=== PATIENT | female | born 1985 | race Caucasian/White ===

== ENCOUNTER → 2018-04-11 | Outpatient (CLI) | payer OTHER ==
[~2018-04-11] MED LIST: ESCI20TA PO
[2018-04-11 11:45] LABS: BASOPHILS % (AUTO) 0.4 % (0-1); EOSINOPHILS # (AUTO) 0.1 X10'3 (0-0.9); EOSINOPHILS % (AUTO) 1.5 % (0-6); HEMATOCRIT 42.1 % (35.0-45.0); HEMOGLOBIN 14.5 g/dl (12.0-16.0); LYMPHOCYTES # (AUTO) 1.6 X10'3 (1.1-4.8); LYMPHOCYTES % (AUTO) 22.6 % (21-51); MEAN CORPUSCULAR HEMOGLOBIN 29.3 PG (27.0-31.0); MEAN CORPUSCULAR HGB CONC 34.4 % (33.0-36.5); MEAN PLATELET VOLUME 9.5 FL (7.4-10.4); MONOCYTES # (AUTO) 0.5 X10'3 (0-0.9); MONOCYTES % (AUTO) 6.7 % (2-12); NEUTROPHILS % (AUTO) 68.8 % (42-75); PLATELET COUNT 266 X10'3 (140-440); RED BLOOD COUNT 4.95 X10'6 (4.20-5.60); RED CELL DISTRIBUTION WIDTH 14.7 % (11.5-14.5); WHITE BLOOD COUNT 7.3 X10'3 (4.5-11.0)
[2018-04-11 12:09] LABS: ALANINE AMINOTRANSFERASE 20 U/L (12-78); ALBUMIN 3.9 G/DL (3.4-5.0); ALKALINE PHOSPHATASE 79 IU/L (46-116); ANION GAP 6 (8-16); ASPARTATE AMINO TRANSFERASE 15 U/L (10-37); BILIRUBIN,TOTAL 0.6 MG/DL (0.1-1.0); BLOOD UREA NITROGEN 8 MG/DL (7-18); BUN/CREATININE RATIO 8.5 (6.6-38.0); CALCIUM 9.4 MG/DL (8.5-10.1); CHLORIDE 103 MMOL/L (99-107); CREATININE 0.94 MG/DL (0.40-0.90); GLUCOSE 95 MG/DL (70-104); POTASSIUM 3.9 MMOL/L (3.5-5.1); SODIUM 137 MMOL/L (135-145); TOTAL CARBON DIOXIDE 28.5 MMOL/L (24-32); eGFR 69 ML/MIN
[2018-04-11 12:53] LABS: RHEUM FACTOR QUAL REFLEX TITER NEGATIVE (Neg)
[2018-04-12 07:13] LABS: VITAMIN D, 25-HYDROXY 37.7 ng/mL (30.0-100.0)
[2018-04-12 08:14] LABS: CANCER ANTIGEN 125 13.1 U/mL (0.0-38.1)
[2018-04-12 17:15] LABS: ANTINUCLEAR ANTIBODIES Negative (Negative)
== END | disposition home or self-care (01) ==
LOC: LAB 10:59
PROVIDERS: ATTEND Physician Assistant Surgical
DX: E78.5 Hyperlipidemia, unspecified (principal); R79.89 Other specified abnormal findings of blood chemistry; R94.6 Abnormal results of thyroid function studies; K90.49 Malabsorption due to intolerance, not elsewhere classified; E55.9 Vitamin D deficiency, unspecified
CPT/HCPCS: 36415; 80053; 82306; 84443; 85025; 85651; 86038; 86304; 86430

== ENCOUNTER 2018-04-28 15:28 | Outpatient (CLI) | payer OTHER | END 2018-04-28 23:59 | disposition home or self-care (01) | LOC: LAB 15:28 | PROVIDERS: ATTEND Physician Assistant Surgical | DX: O92.70 Unspecified disorders of lactation (principal) | CPT/HCPCS: 36415; 84146; 86140 ==

== ENCOUNTER 2018-05-15 10:31 | Outpatient (CLI) | payer OTHER ==
[2018-05-15 11:12] LABS: BASOPHILS % (AUTO) 0.5 % (0-1); EOSINOPHILS # (AUTO) 0.2 X10'3 (0-0.9); EOSINOPHILS % (AUTO) 2.5 % (0-6); HEMATOCRIT 43.5 % (35.0-45.0); HEMOGLOBIN 14.8 g/dl (12.0-16.0); LYMPHOCYTES # (AUTO) 1.5 X10'3 (1.1-4.8); LYMPHOCYTES % (AUTO) 22.3 % (21-51); MEAN CORPUSCULAR HEMOGLOBIN 29.4 PG (27.0-31.0); MEAN CORPUSCULAR VOLUME 86.6 FL (78-98); MEAN PLATELET VOLUME 9.3 FL (7.4-10.4); MONOCYTES # (AUTO) 0.4 X10'3 (0-0.9); MONOCYTES % (AUTO) 6.4 % (2-12); NEUTROPHILS # (AUTO) 4.7 X10'3 (1.8-7.7); NEUTROPHILS % (AUTO) 68.3 % (42-75); PLATELET COUNT 262 X10'3 (140-440); RED BLOOD COUNT 5.02 X10'6 (4.20-5.60); RED CELL DISTRIBUTION WIDTH 13.6 % (11.5-14.5); WHITE BLOOD COUNT 6.9 X10'3 (4.5-11.0)
[2018-05-15 11:27] LABS: ALANINE AMINOTRANSFERASE 20 U/L (12-78); ALBUMIN 3.8 G/DL (3.4-5.0); ALKALINE PHOSPHATASE 65 IU/L (46-116); ANION GAP 6 (8-16); ASPARTATE AMINO TRANSFERASE 9 U/L (10-37); BILIRUBIN,TOTAL 0.5 MG/DL (0.1-1.0); BLOOD UREA NITROGEN 10 MG/DL (7-18); BUN/CREATININE RATIO 10.1 (6.6-38.0); CALCIUM 9.3 MG/DL (8.5-10.1); CHLORIDE 103 MMOL/L (99-107); CHOL/HDL RATIO 4.1 (0.00-4.99); CHOLESTEROL 216 MG/DL (0-200); CREATININE 0.99 MG/DL (0.40-0.90); GLUCOSE 101 MG/DL (70-104); HDL CHOLESTEROL 53 MG/DL (35-60); LDL CHOLESTEROL 132 MG/DL (50-100); POTASSIUM 3.9 MMOL/L (3.5-5.1); SODIUM 138 MMOL/L (135-145); TOTAL PROTEIN 7.7 G/DL (6.4-8.2); TRIGLYCERIDES 176 MG/DL (20-135); eGFR 65 ML/MIN
== END 2018-05-15 23:59 | disposition home or self-care (01) ==
LOC: LAB 10:31
PROVIDERS: ATTEND Family Medicine
DX: M41.86 Other forms of scoliosis, lumbar region (principal); F41.9 Anxiety disorder, unspecified; M60.9 Myositis, unspecified; R11.0 Nausea
CPT/HCPCS: 36415; 74022; 80053; 80061; 85025

== ENCOUNTER 2018-08-29 13:32 | Emergency (ER) | payer OTHER ==
[~2018-08-29] VITALS: Ht 162.6 cm; Wt 96.1 kg
[2018-08-29 13:37] VITALS: BP 153/104
[2018-08-29] MEDS ORDERED: HYDR-4383 PO (14:26)
[2018-08-29] MEDS ORDERED: LIDOcaine 5% patch TP SCH (14:30)
== END 2018-08-29 15:02 | disposition home or self-care (01) ==
LOC: ER 13:33
DX: S46.812A Strain of other muscles, fascia and tendons at shoulder and upper arm level, left arm, initial encounter (principal); Z90.89 Acquired absence of other organs; Z88.2 Allergy status to sulfonamides; Z88.1 Allergy status to other antibiotic agents; Z79.899 Other long term (current) drug therapy; X50.1XXA Overexertion from prolonged static or awkward postures, initial encounter; Y93.89 Activity, other specified; Y92.69 Other specified industrial and construction area as the place of occurrence of the external cause; Y99.9 Unspecified external cause status
CPT/HCPCS: 99283

== ENCOUNTER → 2018-09-15 | Outpatient (CLI) | payer OTHER ==
[~2018-09-15] MED LIST changes: +HYDR-4383 PO
[2018-09-15 15:51] LABS: BASOPHILS # (AUTO) 0.1 X10'3 (0-0.2); BASOPHILS % (AUTO) 0.6 % (0-1); EOSINOPHILS # (AUTO) 0.1 X10'3 (0-0.9); EOSINOPHILS % (AUTO) 0.7 % (0-6); HEMATOCRIT 44.9 % (35.0-45.0); HEMOGLOBIN 14.9 g/dl (12.0-16.0); LYMPHOCYTES % (AUTO) 19.4 % (21-51); MEAN CORPUSCULAR HEMOGLOBIN 29.4 PG (27.0-31.0); MEAN CORPUSCULAR HGB CONC 33.1 % (33.0-36.5); MEAN CORPUSCULAR VOLUME 88.9 FL (78-98); MEAN PLATELET VOLUME 9.3 FL (7.4-10.4); MONOCYTES # (AUTO) 0.6 X10'3 (0-0.9); MONOCYTES % (AUTO) 5.6 % (2-12); NEUTROPHILS # (AUTO) 7.5 X10'3 (1.8-7.7); NEUTROPHILS % (AUTO) 73.7 % (42-75); PLATELET COUNT 327 X10'3 (140-440); RED BLOOD COUNT 5.05 X10'6 (4.20-5.60); RED CELL DISTRIBUTION WIDTH 12.6 % (11.5-14.5); WHITE BLOOD COUNT 10.3 X10'3 (4.5-11.0)
[2018-09-15 16:02] LABS: ALANINE AMINOTRANSFERASE 22 U/L (12-78); ALBUMIN 3.9 G/DL (3.4-5.0); ALKALINE PHOSPHATASE 68 IU/L (46-116); ANION GAP 10 (8-16); ASPARTATE AMINO TRANSFERASE 10 U/L (10-37); BILIRUBIN,TOTAL 0.3 MG/DL (0.1-1.0); BLOOD UREA NITROGEN 12 MG/DL (7-18); BUN/CREATININE RATIO 15.2 (6.6-38.0); CALCIUM 8.9 MG/DL (8.5-10.1); CHLORIDE 100 MMOL/L (99-107); CREATININE 0.79 MG/DL (0.40-0.90); GLUCOSE 91 MG/DL (70-104); POTASSIUM 3.9 MMOL/L (3.5-5.1); SODIUM 138 MMOL/L (135-145); TOTAL CARBON DIOXIDE 27.7 MMOL/L (24-32); TOTAL PROTEIN 7.7 G/DL (6.4-8.2); eGFR 84 ML/MIN
== END | disposition home or self-care (01) ==
LOC: LAB 14:43
PROVIDERS: ATTEND Physician Assistant Surgical
DX: M79.672 Pain in left foot (principal); R94.4 Abnormal results of kidney function studies; N39.0 Urinary tract infection, site not specified
CPT/HCPCS: 36415; 73630; 80053; 84550; 85025; 87088; 87186

== ENCOUNTER 2018-09-30 15:31 | Outpatient (CLI) | payer OTHER | END 2018-09-30 23:59 | disposition home or self-care (01) | LOC: RAD 15:31 | PROVIDERS: ATTEND Family Medicine | DX: M25.512 Pain in left shoulder (principal); M40.40 Postural lordosis, site unspecified | CPT/HCPCS: 72050; 73030 ==

== ENCOUNTER 2018-10-09 14:28 | Outpatient (CLI) | payer OTHER | END 2018-10-09 23:59 | disposition home or self-care (01) | LOC: 64 CT 14:28 | PROVIDERS: ATTEND Physician Assistant Surgical | DX: M79.672 Pain in left foot (principal); Z88.1 Allergy status to other antibiotic agents | CPT/HCPCS: 73700 ==

== ENCOUNTER 2018-10-22 14:41 | Outpatient (CLI) | payer OTHER | END 2018-10-22 23:59 | disposition home or self-care (01) | LOC: RAD 14:41 | PROVIDERS: ATTEND Physician Assistant Surgical | DX: R60.0 Localized edema (principal); Z72.89 Other problems related to lifestyle; Z79.899 Other long term (current) drug therapy | CPT/HCPCS: 73718 ==

== ENCOUNTER 2018-10-23 13:39 | Outpatient (CLI) | payer OTHER ==
[2018-10-23 14:21] LABS: CLARITY,URINE SLIGHTLY CLOUDY (Clear); COLOR,URINE YELLOW (Yellow); GLUCOSE, URINE NEGATIVE (Neg); KETONES,URINE 15 mg/dl (Neg); LEUKOCYTE ESTERASE ,URINE NEGATIVE (Neg); NITRITES, URINE NEGATIVE (Neg); OCCULT BLOOD,URINE NEGATIVE (Neg); PH,URINE 7.5 (4.8-8.0); PROTEIN,URINE NEGATIVE (Neg); UROBILINOGEN,URINE 0.2 E.U/dL (0.2-1.0)
[2018-10-23 14:39] LABS: UA COLLECTION TYPE CLN CATCH MIDSTREAM
[2018-10-23 15:12] LABS: BACTERIA,URINE 1+ /HPF (Neg); MUCUS STRANDS MANY /LPF (Neg); RBC,URINE 0-2 /HPF (0-2); SQUAMOUS EPITHELIAL CELL,UR MANY /LPF (FEW)
[2018-10-23 15:13] LABS: WBC,URINE 0-4 /HPF (0-4)
== END 2018-10-23 23:59 | disposition home or self-care (01) ==
LOC: LAB 13:39
PROVIDERS: ATTEND Physician Assistant Surgical
DX: N39.0 Urinary tract infection, site not specified (principal); Z88.2 Allergy status to sulfonamides; Z88.8 Allergy status to other drugs, medicaments and biological substances
CPT/HCPCS: 81001; 87088

== ENCOUNTER 2018-11-27 12:53 | Outpatient (CLI) | payer OTHER | END 2018-11-27 23:59 | disposition home or self-care (01) | LOC: RAD 12:53 | PROVIDERS: ATTEND Family Medicine | DX: M75.82 Other shoulder lesions, left shoulder (principal) | CPT/HCPCS: 73221 ==

== ENCOUNTER 2019-01-13 14:54 | Outpatient (CLI) | payer OTHER | END 2019-01-13 23:59 | disposition home or self-care (01) | LOC: RAD 14:54 | PROVIDERS: ATTEND Orthopaedic Surgery | DX: M48.02 Spinal stenosis, cervical region (principal); M54.12 Radiculopathy, cervical region; J34.1 Cyst and mucocele of nose and nasal sinus | CPT/HCPCS: 72141 ==

== ENCOUNTER 2019-01-26 13:43 | Inpatient (IN) | payer OTHER ==
[2019-01-22 16:06] LABS: BASOPHILS # (AUTO) 0.1 X10'3 (0-0.2); BASOPHILS % (AUTO) 0.6 % (0-1); EOSINOPHILS % (AUTO) 0.4 % (0-6); LYMPHOCYTES # (AUTO) 1.8 X10'3 (1.1-4.8); LYMPHOCYTES % (AUTO) 16.9 % (21-51); MEAN CORPUSCULAR HEMOGLOBIN 31.2 PG (27.0-31.0); MEAN CORPUSCULAR HGB CONC 34.3 g/dL (33.0-36.5); MEAN CORPUSCULAR VOLUME 90.9 FL (78-98); MEAN PLATELET VOLUME 9.4 FL (7.4-10.4); MONOCYTES # (AUTO) 0.5 X10'3 (0-0.9); NEUTROPHILS # (AUTO) 8.3 X10'3 (1.8-7.7); NEUTROPHILS % (AUTO) 77.1 % (42-75); PRE OP HEMATOCRIT 42.9 % (35.0-45.0); PRE OP HEMOGLOBIN 14.7 g/dL (12.0-16.0); PRE OP PLATELET COUNT 277 X10'3 (140-440); RED BLOOD COUNT 4.72 X10'6 (4.20-5.60); RED CELL DISTRIBUTION WIDTH 12.8 % (11.5-14.5)
[2019-01-22 16:20] LABS: ALBUMIN 3.9 G/DL (3.4-5.0); ALBUMIN/GLOBULIN RATIO 1.1 (1.1-1.5); ALKALINE PHOSPHATASE 69 IU/L (46-116); BLOOD UREA NITROGEN 14 MG/DL (7-18); BUN/CREATININE RATIO 17.1 (6.6-38.0); CALCIUM 9.1 MG/DL (8.5-10.1); CHLORIDE 102 MMOL/L (99-107); CREATININE 0.82 MG/DL (0.40-0.90); PRE OP ALT 24 U/L (30-65); PRE OP ANION GAP 9 (8-16); PRE OP AST 13 U/L (10-37); PRE OP BILIRUB, TOTAL 0.3 MG/DL (0.0-1.0); PRE OP GLUCOSE 103 MG/DL (70-104); PRE OP POTASSIUM 3.6 MMOL/L (3.4-5.1); PRE OP SODIUM 137 MMOL/L (135-145); TOTAL CARBON DIOXIDE 25.6 MMOL/L (24-32); TOTAL PROTEIN 7.5 G/DL (6.4-8.2); eGFR 81 ML/MIN
[2019-01-22 16:21] LABS: PRE OP PROTIME 9.9 SECONDS (9.0-12.0)
[2019-01-22 16:28] LABS: HCG SERUM QL NEGATIVE
[2019-01-26] VITALS (17 sets, daily range): BP systolic 92–119; BP diastolic 54–82
[~2019-01-26] VITALS: Ht 165.1 cm; Wt 99.0 kg
[~2019-01-26 13:43] MED LIST changes: +ACET-2119 PO; +DEXL60CA3 PO; +DOCU-20 PO; -ESCI20TA PO; -HYDR-4383 PO; +LORA0.5T PO; +TRAM50TA2 PO; +VORT20TA PO; +cefotetan 2gm/isosm dext IVPB 50 ML IV ONE; +famotidine 20mg tablet PO ONE
[2019-01-26] MEDS ORDERED: scopolamine 1.5mg patch.TD72 TD ONE (14:20)
[2019-01-26] MEDS: ringers solution, lacted 1,000 ML IV SCH ×2 (14:35→17:48)
[2019-01-26] MEDS ORDERED: vasoPRESSIN 20 units/ml inj. ONE (16:28)
[2019-01-26] MEDS ORDERED: ceFAZolin 1000mg inj ONE (16:28)
[2019-01-26] MEDS ORDERED: ringers solution, lacted 1,000 ML IV SCH (16:29)
[2019-01-26] MEDS ORDERED: morphine 4 MG/ML inj SYRINge IV PRN ×2 (16:30)
[2019-01-26] MEDS ORDERED: proMETHazine 25mg rectal suppository RC PRN (16:30)
[2019-01-26] MEDS ORDERED: labetalol 20mg/4ml (5mg/ml) syringe IV PRN (16:30)
[2019-01-26] MEDS ORDERED: fentaNYL/PF 50MCG/1 ML 2ML syringe IV PRN ×2 (16:30)
[2019-01-26] MEDS ORDERED: hydrALAZINE 20mg/ml inj. IV PRN (16:30)
[2019-01-26] MEDS ORDERED: proCHLORperazine 10 MG/2 ml inj IV PRN ×2 (16:30)
[2019-01-26] MEDS ORDERED: acetaminophen 1,000mg/100ml IV 100 ML IV ONE (16:31)
[2019-01-26] MEDS ORDERED: fentaNYL/PF 50MCG/1 ML 2ML syringe ONE (16:33)
[2019-01-26] MEDS ORDERED: propofol inj 20 ML IV ONE ×2 (16:33→16:50)
[2019-01-26] MEDS ORDERED: LIDOcaine 2% (20mg/ml) 5ml vial ONE (16:33)
[2019-01-26] MEDS ORDERED: dexamethasone sod phosphate 4mg/ml inj. ONE (16:33)
[2019-01-26] MEDS ORDERED: sevoflurane 250ml liquid IH ONE (16:34)
[2019-01-26] MEDS ORDERED: clindamycin phosphate 40gm vag cream ONE (17:12)
[2019-01-26] MEDS ORDERED: fluoroscein sod 10% (100mg/ml) 5ml vial ONE (17:27)
--- NOTE | 2019-01-26 17:46 | NUR ---
Received from OR via , accompanied by Anesthesiologist DR GUZMAN and report given by Anesthesiolgist. AWAKE AND MAHSA PAIN. VITALS STABLE. NO BLEEDING NOTED. ABD SOFT. CONTRERAS WITH CLEAR URINE.
[2019-01-26] MEDS ORDERED: CADD PCA waste documentation MC PRN (17:50)
[2019-01-26] MEDS ORDERED: normal saline 500ml IV soln 500 ML IV PRN (17:50)
[2019-01-26] MEDS ORDERED: diphenhydrAMINE 50 mg/ml inj IV PRN (17:50)
[2019-01-26] MEDS ORDERED: ondansetron/PF 4mg/2ml inj IV PRN (17:50)
[2019-01-26] MEDS ORDERED: temazepam 15mg capsule PO PRN (17:50)
[2019-01-26] MEDS ORDERED: naloxone 0.4 mg/ml inj IV PRN (17:50)
[2019-01-26] MEDS ORDERED: HYDROcodone/acetaminophen 5mg/325mg tablet PO PRN ×2 (17:50)
[2019-01-26] MEDS ORDERED: ketorolac trometh. 30mg/ml inj. IV PRN (17:50)
[2019-01-26] MEDS ORDERED: traMADol 50MG tablet PO PRN ×2 (18:10→19:10)
--- NOTE | 2019-01-26 18:56 | NUR ---
Report called to receiving nurse. Transferred via BED Belongings . Special Issues communicated to receiving nurse. AWAKE AND ORIENTED. VITALS STABLE. DRESSINGS DI. STATES PAIN IMPROVING. TO SURGICAL RM 341 AT THIS TIME.
[2019-01-26] MEDS ORDERED: HYDROmorphone/NS 1 mg/ml CADD 50 ML IV SCH (19:00)
[2019-01-26] MEDS: HYDROmorphone/NS 1 mg/ml CADD 50 ML IV SCH ×2 (19:38→23:00)
[2019-01-27 00:13] VITALS: BP 99/62
[2019-01-27] MEDS: HYDROmorphone/NS 1 mg/ml CADD 50 ML IV SCH ×6 (01:00→11:00)
[2019-01-27] MEDS: ringers solution, lacted 1,000 ML IV SCH ×4 (01:48→13:02)
[2019-01-27 05:01] LABS: BASOPHILS % (AUTO) 0.1 % (0-1); EOSINOPHILS % (AUTO) 0 % (0-6); HEMATOCRIT 40.3 % (35.0-45.0); HEMOGLOBIN 13.6 g/dl (12.0-16.0); LYMPHOCYTES # (AUTO) 0.7 X10'3 (1.1-4.8); LYMPHOCYTES % (AUTO) 7.6 % (21-51); MEAN CORPUSCULAR HEMOGLOBIN 31.1 PG (27.0-31.0); MEAN CORPUSCULAR HGB CONC 33.8 g/dL (33.0-36.5); MEAN CORPUSCULAR VOLUME 91.9 FL (78-98); MEAN PLATELET VOLUME 10.1 FL (7.4-10.4); MONOCYTES # (AUTO) 0.2 X10'3 (0-0.9); MONOCYTES % (AUTO) 2.5 % (2-12); NEUTROPHILS # (AUTO) 8.3 X10'3 (1.8-7.7); NEUTROPHILS % (AUTO) 89.8 % (42-75); PLATELET COUNT 237 X10'3 (140-440); RED BLOOD COUNT 4.38 X10'6 (4.20-5.60); RED CELL DISTRIBUTION WIDTH 12.9 % (11.5-14.5); WHITE BLOOD COUNT 9.3 X10'3 (4.5-11.0)
--- NOTE | 2019-01-27 06:10 | NUR ---
Patient in room [facility]. I have received report from LAURA Carranza and had the opportunity to ask questions and assume patient care.
--- NOTE | 2019-01-27 06:21 | NUR ---
Problems reprioritized. Patient report given, questions answered & plan of care reviewed with LAURA Yoder. Addendum: 01/27/19 at 0621 by Tere Novak RN Amended: Links added.
--- NOTE | 2019-01-27 06:24 | NUR ---
Problems reprioritized. Patient report given, questions answered & plan of care reviewed with LAURA Yoder. Addendum: 01/27/19 at 0625 by Tere Novak RN Amended: Links added.
[2019-01-27] MEDS ORDERED: voritoxetine HBr tablet 5 MG TABLET PO SCH (08:00)
[2019-01-27] MEDS ORDERED: non-formulary drug (Vortioxetine Hydrobromide (Brintellix) 1 TAB) PO SCH (08:00)
[2019-01-27 10:34] VITALS: BP 104/70
[2019-01-27 11:30] VITALS: BP 107/61
--- NOTE | 2019-01-27 12:55 | NUR ---
Patient voided 100Ml. She would like to wait a little bit longer before placing the Mccarty. She might be able to void. I explained that that was fine as long as she isn't uncomfortable. 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 May place this afternoon if the patient still can't void.
--- NOTE | 2019-01-27 16:55 | NUR ---
Patient discharged. PIV removed: cath tip intact. Education given to patient and and they verbalized understanding. 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 Patient was given a leg bag just in case but she plans to stay home. Patient was walked down by staff.
== END 2019-01-27 16:56 | disposition home or self-care (01) | DRG 748 ==
LOC: PAS 13:43 → SUR 3N 19:20
PROVIDERS: ADMIT Specialist; ATTEND Specialist
PROC: 0TSD4ZZ Reposition Urethra, Percutaneous Endoscopic Approach (ICD-10-PCS; 2019-01-26)
PROC: 0JQC0ZZ Repair Pelvic Region Subcutaneous Tissue and Fascia, Open Approach (ICD-10-PCS; principal; 2019-01-26 16:34)
DX: N81.11 Cystocele, midline (principal); N39.3 Stress incontinence (female) (male); J45.909 Unspecified asthma, uncomplicated; E78.5 Hyperlipidemia, unspecified; N36.42 Intrinsic sphincter deficiency (ISD); K21.9 Gastro-esophageal reflux disease without esophagitis; E66.9 Obesity, unspecified; Z68.36 Body mass index [BMI] 36.0-36.9, adult; Z90.710 Acquired absence of both cervix and uterus; Z79.899 Other long term (current) drug therapy; Z88.2 Allergy status to sulfonamides; Z88.8 Allergy status to other drugs, medicaments and biological substances
CPT/HCPCS: 36415; 80053; 84703; 85025; 85610; 85730; 86885; 86900; 86901; A4315; A4355; A6250; A7000; C1771; G0378; J0131; J0690; J1100; J1170; J2001; J2704; J3010; J3490; J7030; J7120

== ENCOUNTER 2019-07-23 09:47 | Outpatient (CLI) | payer OTHER ==
[~2019-07-23 09:47] MED LIST changes: -cefotetan 2gm/isosm dext IVPB 50 ML IV ONE; -famotidine 20mg tablet PO ONE
== END 2019-07-23 23:59 | disposition home or self-care (01) ==
LOC: RAD 09:47
PROVIDERS: ATTEND Chiropractor
DX: M99.01 Segmental and somatic dysfunction of cervical region (principal); M99.02 Segmental and somatic dysfunction of thoracic region; M99.07 Segmental and somatic dysfunction of upper extremity; M60.9 Myositis, unspecified; G54.0 Brachial plexus disorders; Z98.890 Other specified postprocedural states; Z90.710 Acquired absence of both cervix and uterus
CPT/HCPCS: 72146

== ENCOUNTER 2020-01-14 11:12 | Outpatient (CLI) | payer OTHER | END 2020-01-14 23:59 | disposition home or self-care (01) | LOC: RAD 11:12 | PROVIDERS: ATTEND Family Medicine | DX: M50.20 Other cervical disc displacement, unspecified cervical region (principal); M25.512 Pain in left shoulder | CPT/HCPCS: 72141; 73030; 73050 ==

== ENCOUNTER → 2020-06-24 | Outpatient (CLI) | payer OTHER | END | disposition home or self-care (01) | LOC: RAD 09:07 | PROVIDERS: ATTEND Family Medicine | DX: M54.5 Low back pain (principal); M48.8X6 Other specified spondylopathies, lumbar region | CPT/HCPCS: 72148 ==

== ENCOUNTER 2022-10-23 11:22 | Emergency (ER) | payer OTHER ==
[~2022-10-23] VITALS: Ht 162.6 cm; Wt 97.0 kg
[~2022-10-23 11:22] MED LIST changes: -DOCU-20 PO; +DOCU-348 PO
[2022-10-23 11:59] LABS: CLARITY,URINE CLOUDY (Clear); COLOR,URINE YELLOW (Yellow); GLUCOSE, URINE NEGATIVE (Neg); KETONES,URINE NEGATIVE (Neg); LEUKOCYTE ESTERASE ,URINE NEGATIVE (Neg); NITRITES, URINE NEGATIVE (Neg); OCCULT BLOOD,URINE NEGATIVE (Neg); PROTEIN,URINE NEGATIVE (Neg); URINE HCG NEGATIVE (NEG); UROBILINOGEN,URINE 0.2 E.U/dL (0.2-1.0)
[2022-10-23 12:00] LABS: BASOPHILS % (AUTO) 0.6 % (0-1); EOSINOPHILS # (AUTO) 0.1 X10'3 (0-0.9); EOSINOPHILS % (AUTO) 1.9 % (0-6); HEMATOCRIT 42.3 % (35.0-45.0); HEMOGLOBIN 14.4 g/dl (12.0-16.0); LYMPHOCYTES # (AUTO) 1.4 X10'3 (1.1-4.8); LYMPHOCYTES % (AUTO) 32.4 % (21-51); MEAN CORPUSCULAR HEMOGLOBIN 31.7 PG (27.0-31.0); MEAN CORPUSCULAR HGB CONC 34.2 g/dL (33.0-36.5); MEAN CORPUSCULAR VOLUME 92.8 FL (78-98); MEAN PLATELET VOLUME 8.8 FL (7.4-10.4); MONOCYTES # (AUTO) 0.4 X10'3 (0-0.9); MONOCYTES % (AUTO) 8.6 % (2-12); NEUTROPHILS # (AUTO) 2.5 X10'3 (1.8-7.7); NEUTROPHILS % (AUTO) 56.5 % (42-75); PLATELET COUNT 219 X10'3 (140-440); RED BLOOD COUNT 4.55 X10'6 (4.20-5.60); RED CELL DISTRIBUTION WIDTH 12.2 % (11.5-14.5); WHITE BLOOD COUNT 4.4 X10'3 (4.5-11.0)
[2022-10-23 12:01] LABS: UA COLLECTION TYPE CLN CATCH MIDSTREAM
[2022-10-23 12:08] LABS: BACTERIA,URINE FEW /HPF (Neg); MUCUS STRANDS MANY /LPF (Neg); RBC,URINE NONE SEEN /HPF (0-2); SQUAMOUS EPITHELIAL CELL,UR MANY /LPF (FEW); WBC,URINE 0-4 /HPF (0-4)
[2022-10-23 12:11] LABS: ALANINE AMINOTRANSFERASE 34 U/L (12-78); ALBUMIN 4.2 G/DL (3.4-5.0); ALBUMIN/GLOBULIN RATIO 1.2 (1.1-1.5); ALKALINE PHOSPHATASE 53 IU/L (46-116); ANION GAP 8 (8-16); ASPARTATE AMINO TRANSFERASE 19 U/L (10-37); BILIRUBIN,TOTAL 0.5 MG/DL (0.1-1.0); BLOOD UREA NITROGEN 11 MG/DL (7-18); BUN/CREATININE RATIO 13.8 (6.6-38.0); CALCIUM 9.3 MG/DL (8.5-10.1); CHLORIDE 103 MMOL/L (99-107); GLUCOSE 102 MG/DL (70-104); LIPASE 51 U/L (73-393); SODIUM 137 MMOL/L (135-145); TOTAL CARBON DIOXIDE 26.4 MMOL/L (24-32); TOTAL PROTEIN 7.6 G/DL (6.4-8.2); eGFR 81 ML/MIN
--- NOTE | 2022-10-23 12:26 | NUR ---
Topher silvestre in [facility] - 10/23/22 at 1228 by ELZA ZACK GARCIA CHANGED OUT NG TO 18FR, 1000CC GREEN FLUID OUT.
--- NOTE | 2022-10-23 12:26 | NUR ---
ZACK GARCIA CHANGED OUT NG TO 18FR, 1000CC GREEN FLUID OUT.
[2022-10-23] MEDS ORDERED: normal saline 1000ML IV soln IVB ONE (13:10)
[2022-10-23] MEDS ORDERED: metoclopramide 5 mg/ml inj IV ONE (13:10)
[2022-10-23] MEDS ORDERED: morphine 4 MG/ML inj SYRINge IV PRN (13:10)
[2022-10-23 13:47] VITALS: BP 126/77
== END 2022-10-23 16:09 | disposition home or self-care (01) ==
LOC: ER 11:22
DX: R10.9 Unspecified abdominal pain (principal); K21.9 Gastro-esophageal reflux disease without esophagitis; Z98.890 Other specified postprocedural states; Z88.2 Allergy status to sulfonamides; Z79.899 Other long term (current) drug therapy; Z88.6 Allergy status to analgesic agent
CPT/HCPCS: 36415; 74176; 80053; 81001; 81025; 83690; 85025; 96361; 96374; 99285; J2270; J2765; J7030

== ENCOUNTER 2025-03-18 13:00 | Outpatient (CLI) | payer OTHER ==
--- NOTE | 2025-03-22 09:13 | RADIOLOGY REPORT ---
Scoliosis spine Date: 03/18/2025 01:40 PM Indication: SPONDYLOSIS W/ MYELOPATHY OR RADICULOPATHY,LUMBAR/CERVICAL REGION Comparison: None Technique: Standing frontal and lateral views of the thoracolumbar spine were obtained. Findings/Impression: There is 5 degrees of dextroscoliosis with the apex at L2-3.
== END 2025-03-18 23:00 | disposition home or self-care (01) ==
LOC: RAD 13:00
PROVIDERS: ATTEND Anesthesiology Pain Medicine
DX: M41.86 Other forms of scoliosis, lumbar region (principal); M47.816 Spondylosis without myelopathy or radiculopathy, lumbar region; M47.812 Spondylosis without myelopathy or radiculopathy, cervical region; Z68.34 Body mass index [BMI] 34.0-34.9, adult; E66.09 Other obesity due to excess calories
CPT/HCPCS: 72084